=== PATIENT | male | born 1985 | race Two or more races ===

== ENCOUNTER 2017-12-12 23:00 | Emergency (ER) | payer BC ==
[~2017-12-12] VITALS: Ht 175.3 cm; Wt 102.1 kg
--- NOTE | 2017-12-12 23:20 | NUR ---
TO BED 7 A 32 YO MALE PATIENT [facility] C/O "LT FLANK PAIN X2 HOURS." PATIENT WITH HX OF KIDNEY STONES. VSS. NAD NOTED. NONDIAPHORETIC. SKIN WARM AND DRY. COMFORT MEASURES RENDERED.
[2017-12-13] MEDS ORDERED: KETOROLAC TROMETHAMINE INJ 30 MG/ML VIAL ONE (00:45)
[2017-12-13] MEDS ORDERED: ONDANSETRON HCL/PF 4 MG/2 ML VIAL ONE (00:46)
[2017-12-13] MEDS ORDERED: HYDROMORPHONE INJ 0.5 MG/0.5 ML SYRINGE ONE (00:46)
[2017-12-13] MEDS ORDERED: KETOROLAC TROMETHAMINE INJ 30 MG/ML VIAL IV ONE (01:00)
[2017-12-13] MEDS ORDERED: IV NS 0.9% 1,000 ML BAG IV ONE (01:00)
[2017-12-13] MEDS ORDERED: ONDANSETRON HCL/PF 4 MG/2 ML VIAL IV ONE (01:00)
[2017-12-13] MEDS ORDERED: HYDROMORPHONE 1 MG/1 ML DISP.SYRIN IV ONE (01:00)
[2017-12-13 02:11] LABS: APPEARANCE,URINE SL CLOUDY (CLEAR); BILIRUBIN,URINE NEGATIVE (NEGATIVE); BLOOD, URINE 3+ Ery/uL (NEGATIVE); COLOR,URINE YELLOW (YELLOW); KETONES,URINE NEGATIVE (NEGATIVE); LEUKOCYTE ESTERASE ,URINE NEGATIVE (NEGATIVE); NITRITE, URINE NEGATIVE (NEGATIVE); PH,URINE 5.5 (5.0-8.0); PROTEIN,URINE 1+ mg/dl (NEGATIVE); UGLUCOSE NEGATIVE (NEGATIVE); UROBILINOGEN,URINE 0.2 EU/dL (0.2)
[2017-12-13 02:18] LABS: BACTERIA,URINE Moderate /HPF (None Seen); MUCUS,URINE Few /LPF (None Seen); RBC,URINE TOO NUMEROUS TO COUN /HPF (0-2); SQUAMOUS EPITHELIAL CELL,UR Rare /HPF (None Seen)
[2017-12-13] MEDS ORDERED: oxyCODONE/APAP (5/325 MG) 1 UDTAB TABLET ONE (02:50)
--- NOTE | 2017-12-13 02:55 | NUR ---
IV removed. Catheter intact and site benign. Pressure and 4x4 applied to site. No bleeding noted. Patient discharged to home in stable condition. Written and verbal after care instructions given. Patient verbalizes understanding of instruction. Patient is ambulatory with steady gait, accompanied by family. Instructed patient not to drive. vss. nad noted. No further complaints.
[2017-12-13 02:56] VITALS: BP 147/84
[2017-12-13] MEDS ORDERED: oxyCODONE/APAP (5/325 MG) 1 UDTAB TABLET PO ONE (03:00)
== END 2017-12-13 02:57 | disposition home or self-care (01) ==
LOC: ER 23:06
DX: N36.8 Other specified disorders of urethra (principal); I10 Essential (primary) hypertension; Z87.442 Personal history of urinary calculi
CPT/HCPCS: 81001; 87086; 87186; 96361; 96374; 96375; 99284; A4606; J1885; J2405; J7030; Z7610; 81000-TC

== ENCOUNTER 2017-12-17 21:13 | Emergency (ER) | payer BC, OTHER ==
[~2017-12-17] VITALS: Ht 175.3 cm; Wt 102.1 kg
--- NOTE | 2017-12-17 21:20 | NUR ---
Pt BIB SELF FROM HOME. Pt C/O KIDNEY STONE PAIN. Pt STATED HAS PAIN WITH URINATION. Pt ON MONITOR. GOWNED AND RESTING IN BED.
[2017-12-17 21:42] LABS: BASOPHILS # (AUTO) 0.1 /CMM (0.0-0.2); BASOPHILS % (AUTO) 0.7 % (0.0-2.0); EOSINOPHILS # (AUTO) 0.1 /CMM (0.0-0.7); EOSINOPHILS % (AUTO) 0.6 % (0.0-6.0); HEMATOCRIT 51 % (39-51); HEMOGLOBIN 17.5 g/dL (13.5-17.5); LYMPHOCYTES # (AUTO) 2.4 /CMM (0.8-4.8); LYMPHOCYTES % (AUTO) 16.7 % (20.0-44.0); MEAN CORPUSCULAR HEMOGLOBIN 29 PG (26.0-33.0); MEAN CORPUSCULAR HGB CONC 34 g/dl (31.0-36.0); MEAN CORPUSCULAR VOLUME 86 fL (80-96); MONOCYTES # (AUTO) 0.6 /CMM (0.1-1.30); MONOCYTES % (AUTO) 4.4 % (2.0-12.0); NEUTROPHILS # (AUTO) 11.2 /CMM (1.8-8.9); NEUTROPHILS % (AUTO) 77.6 % (43.0-81.0); PLATELET COUNT (AUTO) 257 /CMM (150-450); RDW COEFFICIENT OF VARIATION 12.3 (11.5-15.0); RED BLOOD CELL COUNT(AUTO) 5.93 MIL/uL (4.5-6.0); WHITE BLOOD COUNT (AUTO) 14.4 K/uL (4.3-11.0)
[2017-12-17 21:54] LABS: APPEARANCE,URINE SL CLOUDY (CLEAR); BILIRUBIN,URINE NEGATIVE (NEGATIVE); BLOOD, URINE 3+ Ery/uL (NEGATIVE); COLOR,URINE RED (YELLOW); KETONES,URINE NEGATIVE (NEGATIVE); LEUKOCYTE ESTERASE ,URINE NEGATIVE (NEGATIVE); NITRITE, URINE NEGATIVE (NEGATIVE); PROTEIN,URINE TRACE mg/dl (NEGATIVE); UGLUCOSE NEGATIVE (NEGATIVE); UROBILINOGEN,URINE 0.2 EU/dL (0.2)
[2017-12-17] MEDS ORDERED: KETOROLAC TROMETHAMINE INJ 30 MG/ML VIAL IV ONE (22:00)
[2017-12-17] MEDS ORDERED: TAMSULOSIN 0.4 MG CAP.SR.24H PO ONE (22:00)
[2017-12-17] MEDS ORDERED: IV NS 0.9% 1,000 ML BAG IV ONE (22:00)
[2017-12-17] MEDS ORDERED: MORPHINE SULFATE INJ 2 MG/ML DISP.SYRIN IV ONE (22:00)
[2017-12-17] MEDS ORDERED: ONDANSETRON HCL/PF 4 MG/2 ML VIAL IVP ONE (22:00)
[2017-12-17 22:09] LABS: BACTERIA,URINE Rare /HPF (None Seen); RBC,URINE TOO NUMEROUS TO COUN /HPF (0-2); SQUAMOUS EPITHELIAL CELL,UR Rare /HPF (None Seen); WBC,URINE 0-2 /HPF (0-3)
[2017-12-17] MEDS ORDERED: MORPHINE SULFATE INJ 4 MG/ML DISP.SYRIN ONE ×2 (22:12→22:51)
[2017-12-17] MEDS ORDERED: ONDANSETRON HCL/PF 4 MG/2 ML VIAL ONE (22:12)
[2017-12-17] MEDS ORDERED: KETOROLAC TROMETHAMINE 15 MG/ML VIAL ONE (22:12)
[2017-12-17] MEDS ORDERED: TAMSULOSIN 0.4 MG CAP.SR.24H ONE (22:13)
--- NOTE | 2017-12-17 22:15 | NUR ---
IV STARTED ON RAC 18G
[2017-12-17 22:40] LABS: CALCIUM, SERUM 8.7 mg/dL (8.5-10.1); CREATININE 1.1 mg/dL (0.6-1.3); POTASSIUM 3.9 mmol/L (3.5-5.1)
[2017-12-17] MEDS: MORPHINE SULFATE INJ 2 MG/ML DISP.SYRIN IV ONE (22:52)
--- NOTE | 2017-12-17 23:00 | NUR ---
Pt REFUSED 2ND DOSE OF MORPHINE. WILL KEEP AVAILABLE IN CASE Pt HAS MORE PAIN LATER ON
[2017-12-18] MEDS: MORPHINE SULFATE INJ 2 MG/ML DISP.SYRIN IV ONE (00:29)
--- NOTE | 2017-12-18 00:31 | NUR ---
Patient discharged to home in stable condition. Written and verbal after care instructions given. Patient verbalizes understanding of instruction.
[2017-12-18 00:35] VITALS: BP 159/90
== END 2017-12-18 00:37 | disposition home or self-care (01) ==
LOC: ER 21:14
DX: N20.0 Calculus of kidney (principal); F10.10 Alcohol abuse, uncomplicated
CPT/HCPCS: 36415; 80048; 81001; 85025; 96361; 96374; 96375; 99284; A4606; J1885; J2270; J2405; J7030; Z7610; 81000-TC